=== PATIENT | male | born 1975 | race Caucasian/White ===

== ENCOUNTER → 2019-01-12 | Outpatient (CLI) | payer OTHER ==
--- NOTE | 2019-01-12 14:32 | RADIOLOGY REPORT (SQ) ---
EXAM DESCRIPTION: MRI CERVICAL SPINE WITHOUT COMPLETED DATE/TIME: 01/12/2019 1:31 pm REASON FOR STUDY: M54.2 CERVICALGIA M54.2 CERVICALGIA COMPARISON: None. TECHNIQUE: Sagittal and Axial imaging includes T1, T2, STIR and gradient echo sequences. LIMITATIONS: None. FINDINGS: ALIGNMENT: Normal. VERTEBRAE: Intact. BONE MARROW: Normal. No marrow replacement or reactive changes. DISCS: Disc spaces are narrowed from C4-C7 to a mild degree. HARDWARE: None in the spine. CORD AND BASE OF BRAIN: Normal in size and signal intensity. SOFT TISSUES: No soft tissue masses. C1-C2: No significant spinal stenosis. C2-C3: No significant spinal stenosis or exit foraminal stenosis. C3-C4: No significant spinal stenosis or exit foraminal stenosis. C4-C5: Broad-based disc/osteophyte complex asymmetric to the left. This narrows the anterior CSF spa ce but does not deform the spinal cord. [place] the left neural foramen. C5-C6: Broad-based disc/osteophyte complex slightly asymmetrical to the right narrows the right neura l foramen. [place] the anterior CSF space but does not deform the spinal cord. C6-C7: Broad-based disc/osteophyte complex asymmetric to the right. [place] the right neural foramen . Slightly narrows the anterior CSF space. There is no deformity of the cord. C7-T1: No significant spinal stenosis or exit foraminal stenosis. UPPER THORACIC: Incompletely imaged. No significant spinal stenosis or exit foraminal stenosis. OTHER: No other significant finding. IMPRESSION: Disc/osteophyte complexes from C4-C7. Most significant finding is at C4-5 on the left w here there is left foraminal stenosis. Milder right foraminal stenoses are present at C5-6 and C6-7. TECHNICAL DOCUMENTATION: JOB ID: [id number] [email or web address]- All Rights Reserved Reading location - IP/workstation name: [email or web address]
== END ==
LOC: RAD 13:53
PROVIDERS: ATTEND Nurse Practitioner Family
DX: M54.2 Cervicalgia (principal); K21.0 Gastro-esophageal reflux disease with esophagitis; M54.5 Low back pain; F33.8 Other recurrent depressive disorders; F43.10 Post-traumatic stress disorder, unspecified; Z72.0 Tobacco use; G43.909 Migraine, unspecified, not intractable, without status migrainosus
CPT/HCPCS: 72141